=== PATIENT | female | born 1950 | race Caucasian/White ===

== ENCOUNTER 2020-11-16 21:14 | Emergency (ER) | payer OTHER, MEDICARE ==
[~2020-11-16] VITALS: Ht 152.4 cm; Wt 68.0 kg
[2020-11-16 21:20] VITALS: BP_SYST 130
--- NOTE | 2020-11-17 00:32 | NUR ---
Patient to ER bed 4 to gown for evaluation. Side rails up. Report given to Hannah MORATAYA.
--- NOTE | 2020-11-17 00:43 | NUR ---
Patient brought in with complaining of frontal headache that woke her up from sleep yesterday. pain 8/10. Denies any change in vision, nausea or vomiting, or LOC. Patient reports 3 weeks ago had fall at home where she hit her head on the corner of a door jamb. She denies any LOC and reports having a headache that then resolved 3 days later. No other complaints/injuries per patient or as noted.
--- NOTE | 2020-11-17 01:06 | NUR ---
ER Dr. Pruitt at bedside examining patient.
--- NOTE | 2020-11-17 01:32 | NUR ---
patient off unit to ct scan with HOOD Keen
--- NOTE | 2020-11-17 01:42 | NUR ---
patient returned from ct scan in stable condition
[2020-11-17 02:35] VITALS: BP_SYST 126
--- NOTE | 2020-11-17 02:35 | NUR ---
Patient given written and verbal discharge instructions and verbalizes understanding. ER MD discussed with patient the results and treatment provided. Patient in stable condition. ID arm band removed. No Rx given. Patient educated on pain management and to follow up with PMD. Pain Scale 0/10 Opportunity for questions provided and answered.
== END 2020-11-17 02:35 | disposition home or self-care (01) ==
LOC: SED 21:14
DX: S09.90XA Unspecified injury of head, initial encounter (principal); J45.909 Unspecified asthma, uncomplicated; I10 Essential (primary) hypertension; E03.9 Hypothyroidism, unspecified; Z88.0 Allergy status to penicillin; Z88.1 Allergy status to other antibiotic agents; Z79.899 Other long term (current) drug therapy; W01.198A Fall on same level from slipping, tripping and stumbling with subsequent striking against other object, initial encounter; Y93.89 Activity, other specified; Y92.89 Other specified places as the place of occurrence of the external cause; Y99.8 Other external cause status
CPT/HCPCS: 70450-TC; 99284